=== PATIENT | female | born 1955 | race Caucasian/White ===

== ENCOUNTER 2016-08-28 10:40 | Day surgery (SDC) | payer OTHER ==
[~2016-08-28] VITALS: Ht 170.2 cm; Wt 91.8 kg
[2016-08-28 11:28] LABS: BASOPHILS 0.5 % (0.0-2.0); EOSINOPHILS 2.7 % (0-7); HEMOGLOBIN 12.7 g/dL (12-16); IMMATURE GRANULOCYTES 0.2 % (0-5); LYMPHOCYTES 44.7 % (15-50); MCH 27.7 pg (26.0-34.0); MCHC 31.8 g/dL (31.0-37.0); MCV 87.1 fL (80.0-100.0); MEAN PLATELET VOLUME 10.4 fL (7.4-10.4); MONOCYTES 5.2 % (2-11); NEUTROPHILS 46.7 % (40-80); PLATELET COUNT 315 10x3/uL (130-400); RBC 4.59 10x6/uL (4.00-5.40); RDW 14.6 % (11.5-14.5); WBC 5.8 10x3/uL (4.8-10.8)
[2016-08-28] MEDS ORDERED: NORVASC10 MG PO (11:34)
[2016-08-28] MEDS ORDERED: ZESTRIL40 MG PO (11:34)
[2016-08-28 11:41] VITALS: BP 136/80; Ht 170.2 cm; Wt 91.8 kg
[2016-08-28 11:57] LABS: CALC OSMOLALITY 279 mosm/kg (275-300); CALCIUM 9.3 mg/dL (8.5-10.1); CARBON DIOXIDE 30.6 mmol/L (21.0-32.0); CHLORIDE - SERUM 106 mmol/L (98-107); CREATININE - SERUM 0.8 mg/dL (0.6-1.3); GLUCOSE 109 mg/dL (74-106); SODIUM 141 mmol/L (136-145); UREA NITROGEN 8 mg/dL (7-18); eGFR NON AFRICAN AMERICAN 77 mL/min (90-120)
[2016-08-28] MEDS ORDERED: BENTYL10 MG PO (14:23)
--- NOTE | 2016-08-28 15:05 | NUR ---
GETTING READY FOR DISCHARGE. EATING ICE CREAM. STATES WILL CALL ME WHEN READY FOR A WHEELCHAIR.
--- NOTE | 2016-08-28 15:29 | NUR ---
DRESSED. STATES HAS RESTED AND IS READY FOR DISCHARGE. DISCHARGED HOME VIA WC.
--- NOTE | 2016-09-03 10:50 | OP ---
PATIENT NAME: ROSALIA DAMON MEDICAL RECORD: [id number] :51 LOCATION:[facility] ADMISSION DATE: SURGEON: CARLITA LEE DO DATE OF OPERATION: 08/28/2016 PROCEDURE: Colonoscopy. SCOPE: Olympus video pediatric colonoscope. MEDICATIONS: Propofol 330 mg IV per anesthesia. INDICATIONS: Left lower quadrant abdominal pain. FINDINGS: Informed consent was given. The patient was made comfortable with the above medication. After reaching an adequate level of sedation by slow IV push, the patient was placed in the left side. A digital rectal examination was performed and was normal. The endoscope was then advanced under direct visualization through the rectum to the terminal ileum. Scope was then withdrawn slowly while the mucosa was carefully examined. The entire procedure was normal without evidence of polyps, diverticuli, or other lesions. Retroflexion was performed in the rectum and small internal hemorrhoids were visualized. There were no bleeding stigmata. The scope was withdrawn from the patient. The patient tolerated the procedure well and there were no complications. Withdrawal time was 9 minutes. IMPRESSION: Internal hemorrhoids, otherwise normal colonoscopy. PLAN AND RECOMMENDATIONS: 1. Discharge home when recovery parameters are met. 2. Continue high fiber diet. 3. Consider supplementing diet with Metamucil 1-2 tablespoons daily. 4. We will give a trial of Bentyl 10-20mg p.o. t.i.d. p.r.n. abdominal pain or spasms. 5. Notify the clinic if symptoms failed to improve with the Bentyl trial. 6. Consider imaging if symptoms worsened. TRANSINT:[id number] Voice Confirmation ID: [id number] DOCUMENT ID: [id number] CARLITA LEE DO at 1050 CC: [id number] DICTATION DATE: 08/28/16 1409 [facility]: 08/28/16 1806 [facility] [place] 08/28/16 [place] [id number]
== END 2016-08-28 15:29 | disposition home or self-care (01) ==
LOC: D.OPS 10:40
PROVIDERS: Anesthesiology
DX: R10.32 Left lower quadrant pain (principal); K64.8 Other hemorrhoids; I10 Essential (primary) hypertension; E11.9 Type 2 diabetes mellitus without complications; K21.9 Gastro-esophageal reflux disease without esophagitis